=== PATIENT | male | born 1975 | race Caucasian/White ===

== ENCOUNTER 2021-01-19 07:55 | Outpatient (CLI) | payer OTHER, SELFPAY ==
--- NOTE | ~2021-01-19 | MR_ITS ---
EXAMINATION: MR shoulder RT w con DATE: 01/19/2021 10:30 INDICATION: Right shoulder pain and instability TECHNIQUE: Magnetic resonance imaging (MRI) of the right shoulder was performed following intra-ashlyn cular gadolinium contrast injection and without intravenous contrast. Details of the glenohumeral jam nt injection have been dictated separately. Sequences included axial T2-weighted FS FSE, axial T1-we ighted FS FSE, coronal oblique T1-weighted FS FSE, coronal oblique T2-weighted FSE, sagittal T2-weigh zaid FS FSE, sagittal T1-weighted FSE, and ABER (abduction external rotation) T1-weighted FS FSE. COMPARISON: None. FINDINGS: Coracoacromial arch: The acromion undersurface is flat in morphology (type I). The coracoacromial ligament is normal. Mild acromioclavicular osteoarthritis. Rotator cuff: Mild supraspinatus and infraspinatus tendinopathy. There is a small undersurface tear at the distal i nfraspinatus tendon involving no greater than one third of the tendon thickness located approximately 6 mm from the greater tuberosity footplate which is best appreciated on the ABER images. The teres m inor tendon is normal. Mild subscapularis tendinopathy with tiny partial thickness tear along the cep halad aspect of the lesser tuberosity footplate. Normal rotator cuff muscle bulk and signal. Biceps tendon, glenoid labrum and glenohumeral cartilage: Long head of the biceps tendon is normal. There are suture anchors for prior labral repair at the sup erior and anterior glenoid. The repair appears grossly intact with a normal anterosuperior sublabral foramen. On the ABER images there is a tear at the 3:00-6:00 position of the anteroinferior glenoid l abrum with periosteal stripping consistent with an anterior labral periosteal sleeve avulsion (ALPSA) lesion. The right humeral capsular attachment along the anteroinferior glenoid remains intact. More irregular degenerative tearing of the 11:00-12:00 position of the posterior superior glenoid labrum. Bones and other: Small focus of marrow edema and mild cystic change along the greater tuberosity footplate of the ante rior infraspinatus tendon. Additional mild cystic change at the cephalad aspect of the lesser tuberos ity footplate of the subscapularis tendon. Marrow signal is otherwise normal with no fracture or path ologic marrow replacing process. Partial-thickness cartilage loss with chondral surface regularity bu t without degenerative subchondral changes along the glenoid as well as at the posterior superomedial aspect of the humeral head. No abnormal fluid signal in the subacromial/subdeltoid bursa to suggest bursitis. IMPRESSION: 1. Mild supraspinatus, infraspinatus and subscapularis tendinopathy with very small mild articular si ded tear at the distal infraspinatus tendon and tiny partial-thickness tear at the cephalad lesser tu berosity insertion of the subscapularis tendon. 2. Intact appearing repair of the anterior and superior glenoid labrum with small region of degenerat dewayne tearing of the posterosuperior labrum and attachment with periosteal stripping along the base of the anteroinferior labrum (ALPSA lesion). 3. Mild glenohumeral and acromioclavicular osteoarthritis. Reviewed, dictated and finalized at location A. D LANGUAGE TEACHER IMPRESSION: 1. Mild supraspinatus, infraspinatus and subscapularis tendinopathy with very s mall mild articular sided tear at the distal infraspinatus tendon and tiny part ial-thickness tear at the cephalad lesser tuberosity insertion of the subscapul lizett tendon. 2. Intact appearing repair of the anterior and superior glenoid labrum with sma ll region of degenerative tearing of the posterosuperior labrum and attachment with periosteal stripping along the base of the anteroinferior labrum (ALPSA
--- NOTE | ~2021-01-19 | XR_ITS ---
EXAMINATION: XR fl inj shoulder RT - MR/CT DATE: 01/19/2021 09:41 INDICATION: Right shoulder pain and prior labral repair. TECHNIQUE: A time-out was performed to verify the patient's name, date of , and procedure to b e performed. The procedure including the risks, benefits, and alternatives was discussed with the pat ient. Risks discussed included bleeding and infection. The patient understood the risks and agreed to proceed. The skin overlying the rotator cuff interval of the right glenohumeral joint was prepped a nd draped in usual sterile fashion. Anesthetic was administered with 1% lidocaine subcutaneously. A 22 G needle was advanced under fluoroscopic guidance into the joint. Injection of 1 mL of Omnipaque 240 confirmed intra-articular position of the needle. Subsequently, injectate consisting of 12 mL o f 2:1:1 mixture of sterile saline:Omnipaque 240:1% lidocaine mixed 200:1 with 529 mg/mL Multihance ga dolinium contrast was injected with intra-articular position confirmed by intermittent fluoroscopy. T he needle was removed and the entry site was cleaned and dressed. There were no immediate complicati ons. Fluoroscopy exposure time was 0.2 minutes. The total number of images was 140. Total DAP was 0.7 21 mGycm^2 FINDINGS: Real-time fluoroscopy demonstrates the needle in the right glenohumeral joint. IMPRESSION: 1. Successful right glenohumeral joint injection of dilute gadolinium contrast mixture for subsequent MRI arthrogram which will be dictated separately. . Reviewed, dictated and finalized at location A. ARCHITECT
--- NOTE | ~2021-01-19 | MR_ITS ---
EXAMINATION: MR cervical spine wo con DATE: 01/19/2021 09:20 INDICATION: Right shoulder pain. TECHNIQUE: Magnetic resonance imaging (MRI) of the cervical spine was performed without intravenous c ontrast. Sequences included sagittal T2-weighted FSE, sagittal T2-weighted FS FSE, sagittal T1-weight ed FSE, axial MERGE, and axial T2-weighted FSE. COMPARISON: None FINDINGS: There is 2 mm retrolisthesis of C5 on C6. Vertebral body heights are normal. There is mildl y decreased disc height at C3-C4 and C4-C5 and moderately decreased disc height at C5-C6. The spinal cord signal intensity is normal. The following disc levels are specifically discussed: C2-C3: The disc does not extend beyond the endplate margin. There is no uncovertebral joint osteoarth ritis. There is no facet joint osteoarthritis. There is no neural foraminal stenosis. There is no jeffery tral canal stenosis. C3-C4: There is a central extrusion. There is mild bilateral uncovertebral joint osteoarthritis. Ther e is mild right and moderate left facet joint osteoarthritis. There is mild left neural foraminal malka nosis. There is mild central canal stenosis. C4-C5: There is a central extrusion. There is mild bilateral uncovertebral joint osteoarthritis. Ther e is mild bilateral facet joint osteoarthritis. There is mild left neural foraminal stenosis. There i s mild central canal stenosis. C5-C6: The disc is bulging. There is severe bilateral uncovertebral joint osteoarthritis. There is mi ld bilateral facet joint osteoarthritis. There is mild bilateral neural foraminal stenosis. There is mild central canal stenosis. C6-C7: The disc does not extend beyond the endplate margin. There is no uncovertebral joint osteoarth ritis. There is mild bilateral facet joint osteoarthritis. There is no neural foraminal stenosis. The re is no central canal stenosis. C7-T1: The disc does not extend beyond the endplate margin. There is no uncovertebral joint osteoarth ritis. There is no facet joint osteoarthritis. There is no neural foraminal stenosis. There is no jeffery tral canal stenosis. IMPRESSION: 1. Moderate cervical spondylosis. Reviewed, dictated and finalized at location A. OSIVE EXPERT
== END 2021-01-19 07:56 | disposition home or self-care (01) ==
LOC: ANHIMG 07:59
PROVIDERS: PCP Internal Medicine
DX: M47.892 Other spondylosis, cervical region (principal); M19.011 Primary osteoarthritis, right shoulder
CPT/HCPCS: 23350; 72141; 73222; 77002; A9577; Q9966